=== PATIENT | female | born 1945 | race Caucasian/White ===

== ENCOUNTER 2021-04-27 11:30 | Outpatient (RCR) | payer MEDICARE, SELFPAY ==
[2021-04-25 11:06] VITALS: BP 124/65; PULSE 82
== END 2021-05-26 10:33 | disposition home or self-care (01) ==
LOC: HO.PT 11:30
PROVIDERS: PCP Family Medicine; Visit Provider Family Medicine
DX: R42 Dizziness and giddiness (principal)
CPT/HCPCS: 95992; 97112; 97161

== ENCOUNTER 2021-12-12 14:00 | Outpatient (RCR) | payer MEDICARE, SELFPAY | END 2021-12-30 14:45 | disposition home or self-care (01) | LOC: HO.PT 14:00 | PROVIDERS: PCP Family Medicine; Visit Provider Family Medicine | DX: M67.813 Other specified disorders of tendon, right shoulder (principal); M67.814 Other specified disorders of tendon, left shoulder | CPT/HCPCS: 97110; 97140; 97161 ==

== ENCOUNTER → 2022-10-23 14:58 | Outpatient (BNVA) | payer MEDICARE, SELFPAY | PROVIDERS: PCP Family Medicine; Visit Provider Anesthesiology | DX: M25.511 Pain in right shoulder (principal); M25.512 Pain in left shoulder; M19.019 Primary osteoarthritis, unspecified shoulder; M54.9 Dorsalgia, unspecified | CPT/HCPCS: 99202 ==

== ENCOUNTER 2023-05-17 17:17 | Emergency (ER) | payer MEDICARE, SELFPAY ==
--- NOTE | ~2023-05-17 | XR_ITS ---
EXAMINATION: XR KNEE, LEFT CLINICAL INFORMATION: Fall with knee pain COMPARISON: None available. TECHNIQUE: Four views of the left knee. FINDINGS: There is marked prepatellar soft tissue swelling. No fracture or joint effusion. Alignment is anatomic. Joint spaces are maintained. No abnormal soft tissue calcification. XR/XR knee LT 4V IMPRESSION: Prepatellar soft tissue swelling without fracture.
--- NOTE | ~2023-05-17 | CT_ITS ---
EXAMINATION: CT HEAD WITHOUT CONTRAST CLINICAL INFORMATION: Trauma fall, pain COMPARISON: None available. TECHNIQUE: Contiguous axial imaging was performed from the skull base to vertex without intravenous administration of contrast. This CT examination was performed using dose optimization techniques as appropriate, variously including the following: *Automated exposure control *Adjustment of mA and/or kV according to patient size (this includes techniques or standardized protocols for targeted exams where dose is matched to indication/reason for exam; i.e. extremities or head) *Use of iterative reconstruction technique DLP: 639.19 mGy-cm FINDINGS: No acute intracranial hemorrhage or infarct. The sosa-white matter differentiation is preserved. No midline shift or hydrocephalus. No acute extra-axial fluid collections. Large hematoma involving the right frontal scalp and superior periorbital soft tissues. Ill-defined lucency involving the superior orbital rim on the right (series 6, image 80 of 95). No other acute fracture identified. Sequela bilateral lens replacement. Otherwise, no orbital pathology. Mild mucosal thickening of the visualized paranasal sinuses. The mastoid air cells are clear. Atherosclerotic calcifications of the bilateral carotid siphons. CT/CT head/brain wo IV con IMPRESSION: -Large right frontal scalp and superior periorbital soft tissue hematoma. Ill-defined lucency concerning for acute nondisplaced fracture of the right superior orbital rim. -No acute intracranial abnormality.
[2023-05-17 18:38] VITALS: BP 155/82; PULSE 79; RESP 20; TEMP 36.9; O2SAT 98; BMI 30.7
--- NOTE | 2023-05-17 18:44 | ED.GENADULT ---
HPI - General Adult General Chief complaint: Fall Stated complaint: Head Injury/Fall Time Seen by Provider: 05/17/23 21:29 Source: patient Mode of arrival: ambulatory Limitations: no limitations History of Present Illness HPI narrative: Patient apparently was walking on the grass tripped and fell hitting her forehead to the ground comes here with swelling and abrasion of the right side of the forehead and left knee able to ambulate no loss of conscious not on any blood thinners no other injuries Related Data Home Medications Medication Instructions Recorded Confirmed atorvastatin 40 mg tablet 40 mg PO DAILY 10/23/22 cholecalciferol (vitamin D3) 50 50 mcg PO DAILY 10/23/22 mcg (2,000 unit) capsule (D3-2000) diclofenac sodium 1 % topical gel 1 ea topical QID 10/23/22 diltiazem HCl 360 mg 360 mg PO DAILY 10/23/22 capsule,extended release 24 hr gabapentin 600 mg tablet 600 mg PO TID 10/23/22 lisinopril 40 mg tablet 40 mg PO DAILY 10/23/22 metformin 500 mg tablet,extended 1,000 mg PO BID 10/23/22 release 24 hr omeprazole 20 mg capsule,delayed 40 mg PO DAILY 10/23/22 release primidone 50 mg tablet 100 mg PO BID 10/23/22 sertraline 100 mg tablet 100 mg PO DAILY 10/23/22 Allergies Allergy/AdvReac Type Severity Reaction Status Date / Time Penicillins [PENICILLINS] Allergy Unknown Hives Verified 05/17/23 22:43 Anesthetics - Kristan Type- Allergy Hives Verified 05/17/23 22:43 Parabens Review of Systems Review of Systems: Yes all other systems are reviewed and are negative [facility] Social History Social History Alcohol intake: current Alcohol intake frequency: holidays/special occasions only Smoked in Last 30 Days: No Use of substances other than those prescribed or required for medical reasons: No Advance Directives: No Advance Directives Information Provided: No Physical Exam ED Vital Signs: Vital Signs - 24 hr 05/17/23 18:38 05/17/23 22:31 Temperature 98.5 F Pulse Rate 79 68 Respiratory Rate 20 16 Blood Pressure 155/82 H 142/79 H Pulse Oximetry 98 100 Oxygen Delivery Method Room Air Room Air BMI result Body Mass Index 30.7 Appearance: Alert. Oriented X3. No acute distress. Eyes: PERRLA, No Nystagmus HEENT: Pharynx normal. Oral Mucosa moist hematoma right frontal no orbital tenderness Neck: Normal inspection. Neck supple. CVS: Normal heart rate and rhythm. Pulses normal. Respiratory: No respiratory distress. Equal air entry bilateral, no wheezing/rales/rhonchi Abdomen: Soft and nontender. Bowel sounds are present, no mass palpable, no CVA tenderness Skin: Skin warm and dry. Normal skin color. Normal skin turgor. Extremities: No lower extremity edema. No calf tenderness left prepatellar swelling with abrasion Neuro: Oriented X 3. No motor deficit. No sensory deficit.No cerebellar signs , cranial nerves II-XII intact Course Course Course Narrative: This is a rapid medical exam: Additional HPI, ROS, PE not included below will be deferred to primary provider. Patient is a 77-year-old female presenting to the ED with complaint of head injury. 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 She denies loss of consciousness, fall was witnessed by friend. Denies any vision changes, nausea, or vomiting. Denies neck or back pain. She is not anticoagulated. Significant hematoma to right forehead. Plan: CT head Medications Administered Discontinued Medications Generic Name Dose Route Start Last Admin Trade Name Uriahq PRN Reason Stop Dose Admin Acetaminophen 650 mg 05/17/23 22:41 05/17/23 22:46 Acetaminophen 325 Mg Tablet PO 05/17/23 22:42 650 mg ONCE ONE Administration Bacitracin 1 appl 05/17/23 22:42 05/17/23 22:47 Bacitracin Oint 0.9 Gm Packet TOPICAL 05/17/23 22:43 1 appl ONCE ONE Administration Protocol Medical Decision Making Medical Decision Making MDM Narrative: Chin after a minor fall CT scan negative for acute x-ray negative for fracture discharge patient home patient ambulatory in the ER wade wrap was applied to the left knee Differential Diagnosis Differential Diagnoses: The differential diagnosis associated with the presentation includes Subdural hematoma/cranial fracture/SAH/ICH/knee fracture Independent Interpretation I performed an independent interpretation of an: Plain X-Ray and CT Scan Radiology Impression Discussion of test interpretation with radiology: I have reviewed the radiologist's reading. Discharge Plan Discharge Clinical Impression: Contusion of left knee, Minor head injury Patient Disposition: Home, Self-Care Instructions: Head Injury (ED), Contusion in Adults (ED) Additional Instructions: Local care of the abrasions as advised Tylenol for pain Prescriptions: No Action lisinopril 40 mg tablet 40 mg PO DAILY sertraline 100 mg tablet 100 mg PO DAILY gabapentin 600 mg tablet 600 mg PO TID atorvastatin 40 mg tablet 40 mg PO DAILY diltiazem HCl 360 mg capsule,extended release 24hr 360 mg PO DAILY metformin 500 mg tablet extended release 24 hr 1,000 mg PO BID primidone 50 mg tablet 100 mg PO BID omeprazole 20 mg capsule,delayed release(DR/EC) 40 mg PO DAILY diclofenac sodium 1 % gel 1 ea topical QID cholecalciferol (vitamin D3) [D3-2000] 50 mcg (2,000 unit) capsule 50 mcg PO DAILY Interventions: ED Discharge Assessment Last Done: 05/18/23 00:13 Discharge Date/Time: 05/18/23 00:16
[2023-05-17 22:31] VITALS: BP 142/79; PULSE 68; RESP 16; O2SAT 100
[2023-05-17] MEDS: Acetaminophen 325 MG TABLET 650 MG PO (22:46)
[2023-05-17] MEDS: Bacitracin Oint 0.9 GM PACKET 1 APPL TOPICAL (22:47)
== END 2023-05-18 00:16 | disposition home or self-care (01) ==
PROVIDERS: Emergency Provider Internal Medicine; PCP Family Medicine
DX: S80.02XA Contusion of left knee, initial encounter (principal); S09.90XA Unspecified injury of head, initial encounter; R51.9 Headache, unspecified; W01.0XXA Fall on same level from slipping, tripping and stumbling without subsequent striking against object, initial encounter; Y93.9 Activity, unspecified; Y92.9 Unspecified place or not applicable; Y99.9 Unspecified external cause status; Z79.899 Other long term (current) drug therapy
CPT/HCPCS: 70450; 73564; 99284

== ENCOUNTER 2023-08-28 11:24 | Outpatient (AMB) | payer MEDICARE, SELFPAY ==
--- NOTE | 2023-08-28 11:26 | A.OFFVIS_ITS ---
Intake Vital Signs 08/28/23 11:35 Height 5 ft 2 in Weight 161 lb 8 oz BMI 29.5 BP 187/83 H Blood Pressure Location Lt brachial Position Sitting Pulse 76 Intake Visit Reasons: Gallstones Intake Note: Patient is seen in office for evaluation and treatment of gallstones. Pt c/o: onset few months, admits to loss of appetite, sweat/cold, nausea and vomit morning, bm are inconsistent diarrhea/constipation denies any abdominal pain US:07/02/23 Neurourologist Required: No Accompanied by: Self / Same As Patient Allergies benzocaine Allergy (Mild, Verified 08/28/23 11:33) Hives tetracaine Allergy (Mild, Verified 08/28/23 11:33) Hives Penicillins [PENICILLINS] Allergy (Unknown, Verified 08/28/23 11:33) Hives Anesthetics - Kristan Type- Parabens Allergy (Verified 08/28/23 11:33) Hives Medication List - Last Reconciled 08/28/23 by Chun Summers MD atorvastatin 40 mg PO DAILY cholecalciferol (vitamin D3) (D3-2000) 50 mcg PO DAILY diltiazem HCl 360 mg PO DAILY lisinopril 40 mg PO DAILY metformin ER 1,000 mg PO BID omeprazole 40 mg PO DAILY primidone 100 mg PO BID sertraline 100 mg PO DAILY HPI HPI Comments History of Present Illness Details 77-year-old female patient presenting fo r evaluation of gallstones noted on recent ultrasound of the abdomen. She reports a several month history of complaints of nausea and vomiting as well as significant amount of weight loss. She denies a history of abdominal pain at any point but mainly was concerned about the vomiting. She reports that the vomiting has improved over the past 2 weeks and she is able to eat a diet. She is uncertain if any particular foods cause more symptoms. Workup with an ultrasound of the abdomen revealed a thin-walled gallbladder multiple tiny shadowing gallstones and sludge. The patient was not focally tender during the examination over the gallbladder. Symptoms also include alternating diarrhea and constipation. She denies any gross bloody stool but did have some dark stool for a prolonged period of time. Her last colonoscopy was approximately 9 years ago. [facility] Surgical History History of carpal tunnel surgery of left wrist (~2006) History of left breast biopsy (~1970) Hx of cataract surgery (~2014) Family History Paternal Grandmother Colon cancer Breast cancer Social History Alcohol intake: current Alcohol intake frequency: holidays/special occasions only Review of Systems Const All systems reviewed & are unremarkable except as noted in HPI and below Physical Exam Vital Signs: Last Vital Signs Pulse 76 08/28/23 11:35 BP 187/83 H 08/28/23 11:35 BMI result Body Mass Index 29.5 Const General: cooperative and no acute distress Nutritional Appearance: well nourished Orientation/consciousness: patient oriented x3 Limitations: no limitations HEENT Head: Yes normocephalic and Yes atraumatic Ears: hearing grossly normal bilaterally Resp Effort & Inspection: normal respiratory effort, no audible wheezes, no cough and no respiratory distress Cardio Jugular venous distension: no JVD GI Other: Soft and nontender, negative Guerrero sign, palpable ventral hernia easily reducible with light pressure, no rebound, no rigidity. Inspection: Yes normal to inspection Skin Other: Warm, dry, no rash Neuro General: patient oriented x3 Extrem General: Yes no clubbing, cyanosis or edema Assessment & Plan Assessment & Plan (1) Cholelithiasis: Code(s): K80.20 - Calculus of gallbladder without cholecystitis without obstruction Qualifiers: Cholelithiasis location: gallbladder Cholecystitis presence: without cholecystitis (2) Nausea & vomiting: Code(s): R11.2 - Nausea with vomiting, unspecified Qualifiers: Vomiting type: unspecified Qualified Code(s): R11.2 - Nausea with vomiting, unspecified Plan 77-year-old female patient presenting with a recent history of nausea, vomiting, and weight loss but no apparent abdominal pain found to have multiple small gallstones and sludge. She denies a history of abdominal pain or fatty food intolerance. Examination reveals no apparent tenderness in the right upper quadrant and a negative Guerrero sign. I therefore recommended further evaluation with a HIDA scan to evaluate gallbladder function. If this is normal, no surgical intervention is recommended. I also suggested she consider repeat colonoscopy given her alternating constipation and diarrhea. She expressed understanding and agrees with the plan. Orders: Orders NM hepatobiliary w pharm Today K80.20 - Calculus of gallbladder without cholecystitis without obstruction, R11.2 - Nausea with vomiting, unspecified Coding Level of Care Code New Pt Level 4 (98492) Diagnoses Cholelithiasis K80.20 Cholelithiasis location: gallbladder Cholecystitis presence: without cholecystitis Nausea and vomiting, unspecified vomiting type R11.2 Vomiting type: unspecified
[2023-08-28 11:35] VITALS: BP 187/83; PULSE 76; BMI 29.5
== END 2023-08-28 11:59 | disposition home or self-care (01) ==
PROVIDERS: PCP Family Medicine; Referring Provider Family Medicine; Visit Provider Surgery
DX: K80.20 Calculus of gallbladder without cholecystitis without obstruction (principal); R11.2 Nausea with vomiting, unspecified
CPT/HCPCS: 99204; 99214

== ENCOUNTER → 2023-08-28 11:24 | Outpatient (BNVA) | payer MEDICARE, SELFPAY | PROVIDERS: PCP Family Medicine; Referring Provider Family Medicine; Visit Provider Surgery | DX: K80.20 Calculus of gallbladder without cholecystitis without obstruction (principal); R11.2 Nausea with vomiting, unspecified | CPT/HCPCS: 99202 ==

== ENCOUNTER → 2023-09-24 09:56 | Outpatient (REF) | payer MEDICARE, SELFPAY ==
--- NOTE | ~2023-09-24 | NM_ITS ---
EXAMINATION: BILIARY TRACT IMAGING STUDY WITH CCK CLINICAL INFORMATION: A 77-year-old female with persistent nausea vomiting and weight loss. Found to have a gallstone.. COMPARISON: None available at the moment for comparison.. TECHNIQUE: Serial gamma scintillation camera images were obtained over the abdomen for a total observation period of 60 minutes following the intravenous administration of 5 mCi Tc-99m mebrofenin. FINDINGS: There is good concentration of activity in the liver by 5 minutes post injection. Biliary activity is visualized by 10 minutes. The gallbladder is well visualized by 40 minutes. Small bowel is well visualized by 50 minutes. At 60 minutes post radiopharmaceutical injection, a 30-minute infusion of 1.5 micrograms Sincalide was then begun and an additional 40 minutes of images were obtained. There is poor emptying of the gallbladder. By the end of the study there is good clearance of activity from the liver and visualization of diffuse small bowel activity. The calculated gallbladder ejection fraction is 0% (Normal range of gallbladder ejection fraction is between 35-80%; GBEF <35% is considered biliary hypokinesia and >80% is considered biliary hyperkinesia; Ref. #1-Clinical Journal of Gastroenterology (2020) 14:1308?1317; Ref.#2-[email or web address]://[email or web address]-onzwgmo-[email or web address]-Gastroent yywbyc-[email or web address]). NM/NM hepatobiliary w pharm IMPRESSION: Visualization of the gallbladder is evidence of a patent cystic duct and strong evidence against the diagnosis of acute cholecystitis. The common bile duct is patent. Gallbladder emptying and ejection fraction are abnormal. Liver function appears normal.
== END ==
LOC: HO.NUCMED 09:56
PROVIDERS: PCP Family Medicine; Visit Provider Surgery
DX: K80.20 Calculus of gallbladder without cholecystitis without obstruction (principal); R11.2 Nausea with vomiting, unspecified
CPT/HCPCS: 78227; A9537; J2805

== ENCOUNTER 2023-10-11 10:45 | Outpatient (AMB) | payer MEDICARE, SELFPAY ==
--- NOTE | 2023-10-11 10:48 | MHC.OFFVIS ---
Vital Signs 10/11/23 10:53 Height 5 ft 2 in Weight 158 lb BMI 28.9 BP 134/62 Blood Pressure Location Lt brachial Position Sitting Pulse 65 Intake Visit Reasons: HIDA scan results Intake Note: Patient is seen in office for HIDA scan results, following cholelithiasis. Pt c/o:denies any concerns, here for results Account Development Specialist Required: No Accompanied by: Self / Same As Patient Allergies benzocaine Allergy (Mild, Verified 10/11/23 10:54) Hives tetracaine Allergy (Mild, Verified 10/11/23 10:54) Hives Penicillins [PENICILLINS] Allergy (Unknown, Verified 10/11/23 10:54) Hives Anesthetics - Kristan Type- Parabens Allergy (Verified 10/11/23 10:54) Hives Medication List - Last Reconciled 10/11/23 by Chun Summers MD atorvastatin 40 mg PO DAILY cholecalciferol (vitamin D3) (D3-2000) 50 mcg PO DAILY diltiazem HCl CD 360 mg PO DAILY lisinopril 40 mg PO DAILY metformin ER 1,000 mg PO BID omeprazole 40 mg PO DAILY primidone 100 mg PO BID sertraline 100 mg PO DAILY HPI Comments Details: Patient returns to review the results of her HIDA scan. Since her last visit she reports feeling much improved with no further nausea. HIDA scan was reviewed in detail which shows normal filling of the gallbladder but abnormal gallbladder emptying suggestive of chronic cholecystitis. [facility] Surgical History History of carpal tunnel surgery of left wrist (~2006) History of left breast biopsy (~1970) Hx of cataract surgery (~2014) Family History Paternal Grandmother Colon cancer Breast cancer Social History Alcohol intake: current Alcohol intake frequency: holidays/special occasions only Physical Exam Vital Signs: Last Vital Signs Pulse 65 10/11/23 10:53 BP 134/62 10/11/23 10:53 BMI result Body Mass Index 28.9 Const General: cooperative and no acute distress Nutritional Appearance: well nourished Orientation/consciousness: patient oriented x3 Limitations: no limitations HEENT Head: Yes normocephalic and Yes atraumatic Ears: hearing grossly normal bilaterally Resp Effort & Inspection: normal respiratory effort, no audible wheezes, no cough and no respiratory distress Cardio Jugular venous distension: no JVD GI Other: Exam deferred Inspection: Yes normal to inspection Skin Other: Warm, dry, no rash Neuro General: patient oriented x3 Extrem General: Yes no clubbing, cyanosis or edema Assessment & Plan Assessment & Plan (1) Nausea & vomiting: Code(s): R11.2 - Nausea with vomiting, unspecified Category: Medical Qualifiers: Vomiting type: unspecified Qualified Code(s): R11.2 - Nausea with vomiting, unspecified (2) Cholelithiasis: Code(s): K80.20 - Calculus of gallbladder without cholecystitis without obstruction Category: Medical Qualifiers: Cholelithiasis location: gallbladder Cholecystitis presence: without cholecystitis Plan Overall the patient is much improved with no further nausea since her last visit. HIDA scan does show evidence of biliary dyskinesia which would be an indication for cholecystectomy if the symptoms continue. As she is feeling improved at this time I recommended observation. She is welcome to call should the symptoms return. Coding Level of Care Code Est Pt Level 3 (77457) Diagnoses Nausea and vomiting, unspecified vomiting type R11.2 Vomiting type: unspecified Cholelithiasis K80.20 Cholelithiasis location: gallbladder Cholecystitis presence: without cholecystitis
[2023-10-11 10:53] VITALS: BP 134/62; PULSE 65; BMI 28.9
== END 2023-10-11 11:04 | disposition home or self-care (01) ==
PROVIDERS: PCP Family Medicine; Visit Provider Surgery
DX: K80.20 Calculus of gallbladder without cholecystitis without obstruction (principal)
CPT/HCPCS: 99213

== ENCOUNTER → 2023-10-11 10:45 | Outpatient (BNVA) | payer MEDICARE, SELFPAY | PROVIDERS: PCP Family Medicine; Visit Provider Surgery | DX: K80.20 Calculus of gallbladder without cholecystitis without obstruction (principal); R11.2 Nausea with vomiting, unspecified | CPT/HCPCS: 99212 ==

== ENCOUNTER 2024-01-08 12:00 | Outpatient (RCR) | payer MEDICARE, SELFPAY ==
[2023-10-09 14:04] VITALS: BP 136/65; PULSE 60
== END 2024-01-08 16:48 | disposition home or self-care (01) ==
LOC: HO.PT 12:00
PROVIDERS: PCP Family Medicine; Visit Provider Physician Assistant
DX: M54.2 Cervicalgia (principal); R26.89 Other abnormalities of gait and mobility
CPT/HCPCS: 97110; 97112; 97162

== ENCOUNTER 2024-02-21 13:29 | Outpatient (REF) | payer MEDICARE, SELFPAY ==
--- NOTE | ~2024-02-21 | CT_ITS ---
EXAMINATION: CT CHEST, ABDOMEN AND PELVIS WITH CONTRAST CLINICAL INFORMATION: Weight loss. COMPARISON: No pertinent prior studies are available for comparison. TECHNIQUE: Multidetector volumetric imaging was performed from the thoracic inlet through the pubic symphysis following administration of 85 mL Omnipaque 350 intravenous contrast. Sagittal and coronal reformatted images were obtained on the technologist workstation. This CT examination was performed using dose optimization techniques as appropriate, variously including the following: *Automated exposure control. *Adjustment of mA and/or kV according to patient size (this includes techniques or standardized protocols for targeted exams where dose is matched to indication/reason for exam, i.e., extremities or head). *Use of iterative reconstruction technique. DLP: 487.5 mGy-cm. FINDINGS: CHEST: LUNGS: The lungs are clear, with no evidence of inflammation or noncalcified nodules. There are a few bilateral benign, calcified granulomas. There are foci of minor scar/subsegmental atelectasis within the right upper and middle lobes and the lingula, without associated focal airway obstruction. There is no generalized small airway thickening. The central airways appear patent. MEDIASTINUM: Several thyroid nodules are seen, the largest within the left lobe measuring 1.4 cm (3:5). Central vascular structures are unremarkable. There is no thoracic aortic aneurysm or dissection. No mediastinal or bilateral hilar lymphadenopathy is seen. CORONARY ARTERY ATHEROSCLEROSIS: Minimal. PERICARDIUM/PLEURA: There is no significant effusion. No pleural mass or thickening. CHEST WALL/AXILLA: Unremarkable. ABDOMEN/PELVIS: LIVER, GALLBLADDER, BILIARY TREE: The liver is normal in size, shape, and attenuation. No focal hepatic lesion or biliary ductal dilatation is present. There are multiple gallstones, without gallbladder wall thickening or pericholecystic inflammatory changes. PANCREAS: Unremarkable. SPLEEN: Unremarkable. ADRENAL GLANDS: Unremarkable. KIDNEYS AND URETERS: The kidneys are normal in size, shape, and attenuation. No hydronephrosis or hydroureter or calculi seen. No perinephric stranding. BLADDER: Unremarkable. GASTROINTESTINAL TRACT: There is mild diverticulosis, without acute diverticulitis. No bowel obstruction, free intraperitoneal air or abscess is seen. There is no focal bowel wall thickening. The vermiform appendix is not identified with certainty; however, there is no finding to suggest appendicitis. ABDOMINAL WALL: No significant hernia is demonstrated. LYMPH NODES: Normal. VASCULAR: There is mild aortoiliac atherosclerotic calcification. No abdominal aortic aneurysm or dissection is seen PELVIC VISCERA: The uterus and adnexa are unremarkable. OSSEOUS STRUCTURES: There is multi-level thoracolumbar degenerative disc disease and endplate and facet arthropathy. Degenerative disc disease is most pronounced at T12-L1 through L2-3 and at L4-5, with vacuum disc phenomenon. At L4-5, there is a 4 mm anterolisthesis. No acute or aggressive osseous finding is noted. CT/CT abdomen pelvis w IV con IMPRESSION: 1. No pulmonary noncalcified nodule, mass, infiltrate or groundglass opacity is seen. 2. There is no thoracic lymphadenopathy or pleural effusion. 3. A 1.4 cm left thyroid lobe nodule is seen, which can be more fully evaluated with dedicated thyroid ultrasound, if clinically indicated. 4. There is cholelithiasis. 5. There is mild diverticulosis, without acute diverticulitis. 6. There is no abdominopelvic mass, free fluid or lymphadenopathy. 7. There are multi-level degenerative changes of the thoracolumbar spine. No aggressive osseous lesion is seen. Electronically signed by: Chun Senior MD 03/17/2024 10:28 PM EDT
[2024-02-21] MEDS: iohexoL 350 MG/ML 100 ML INFUS..BTL 85 ML IV (16:33)
[2024-02-22 09:48] LABS: Creatinine POC 0.9 mg/dL (0.5-1.4); GFR POC > 60
== END 2024-02-21 13:30 | disposition home or self-care (01) ==
LOC: HO.CT 13:29
PROVIDERS: PCP Family Medicine; Visit Provider Physician Assistant Medical
DX: R61 Generalized hyperhidrosis (principal)
CPT/HCPCS: 71260; 74177; 82565; Q9967

== ENCOUNTER 2024-03-11 11:00 | Outpatient (RCR) | payer MEDICARE, SELFPAY | END 2024-04-07 08:44 | disposition home or self-care (01) | LOC: HO.PT 11:00 | PROVIDERS: PCP Family Medicine; Visit Provider Family Medicine | DX: M25.511 Pain in right shoulder (principal); M25.512 Pain in left shoulder | CPT/HCPCS: 97110; 97140; 97162 ==

== ENCOUNTER 2024-03-28 09:51 | Outpatient (REF) | payer MEDICARE, SELFPAY ==
--- NOTE | ~2024-03-28 | MM_ITS ---
EXAMINATION: BONE DENSITOMETRY CLINICAL INDICATION: Osteopenia. COMPARISON: This is the patient's baseline examination. TECHNIQUE: Using a [employer] DXA System (software version: 13.1) manufactured by [employer], dual-energy x-ray absorptiometry was performed of the lumbar spine and left hip. The images are of good technical quality. Summary results are attached. FINDINGS: LEFT FEMUR, NECK: BMD 0.966 g/cm2, Z-score 1.5, T-score -0.5, normal. LEFT FEMUR, TOTAL: BMD 1.059 g/cm2, Z-score 2.3, T-score 0.4, normal. AP SPINE L1-L4 (excluding L2): The data of L1-L4 has been changed to exclude the L2 vertebral body, because at this level may cause overestimation of lumbar spine density. BMD 1.299 g/cm2, Z-score 2.8, T-score 1.1, normal. IDENTIFIED RISK FACTORS: Menopause, osteoporosis, recurrent falls. HISTORY OF FRACTURE: None listed. MEDICATIONS: None listed. MM/XR DEXA axial skeleton IMPRESSION: 1. DIAGNOSIS: Normal bone density based on the lowest T-score value of -0.5 in the femoral neck applying World Health Organization criteria. 2. 10-YEAR FRACTURE RISK PREDICTION, FRAX: According to the guidelines, FRAX calculation should only be performed on patients in the osteopenia bone density category. Therefore, FRAX was not performed on this patient. 3. Treatment Recommendations: NOF guidelines recommend consideration for treatment in postmenopausal women and men age 50 and older presenting with the following: -A hip or vertebral (clinical or morphometric) fracture. -T-score less than or equal to -2.5 at the femoral neck or spine after appropriate evaluation to exclude secondary causes. -Low bone mass at the hip or spine and a 10-year fracture probability by FRAX of greater than or equal to 3% for hip fracture or greater than or equal to 20% for major osteoporotic fracture based on the [place] adapted WHO algorithm. 4. Other Recommendations: All treatment decisions require clinical judgment and consideration of individual patient factors, including patient preferences, comorbidities, previous drug use, risk factors not captured in the FRAX model (e.g. frailty, falls, vitamin D deficiency, increased bone turnover, interval significant decline in bone density) and possible under or overestimation of fracture risk by FRAX. FUTURE SCAN RECOMMENDATION: People with diagnosed cases of osteoporosis or at high risk for fracture should have regular bone mineral density tests. For patients eligible for Medicare, routine testing is allowed once every 2 years. The testing frequency can be increased to one year for patients who have rapidly progressing disease, those who are receiving or discontinuing medical therapy to restore bone mass, or have additional risk factors. Electronically signed by: Piero Hebert MD 03/31/2024 02:33 PM EDT
== END 2024-03-28 09:52 | disposition home or self-care (01) ==
LOC: HO.MAMMO 09:51
PROVIDERS: PCP Family Medicine; Visit Provider Family Medicine
DX: M85.80 Other specified disorders of bone density and structure, unspecified site (principal); Z91.81 History of falling; Z78.0 Asymptomatic menopausal state; M81.0 Age-related osteoporosis without current pathological fracture
CPT/HCPCS: 77080

== ENCOUNTER 2025-01-12 12:47 | Outpatient (AMB) | payer MEDICARE, SELFPAY ==
--- OUTSIDE RECORDS SUMMARY | 2025-01-12 12:50 | XMS_ITS | Encounter Summary ---
Author Organization [facility] Address [address] [place] [id number] Phone Care Team Providers Care Back Joiner Name Role Phone Mariel Mendes MD Primary Care Provider [phone] Mariel Mendes MD Primary Care Provider [phone] Encounter Details Date Type Department Care Team (Latest Contact Info) Description 11/07/2023 Transcribe Orders [facility] [address] [place] [address] Phong Johnson MD [address] [facility] [address] [place] [address] [email or web address] Frequent bowel movements (Primary Dx) Social History Tobacco Use Types Packs/Day Years Used Date Smoking Tobacco: Former Cigarettes Q uit: 1989 Smokeless Tobacco: Never Alcohol Use Standard Drinks/Week Comments Yes 0 (1 standard drink = 0.6 oz pur e alcohol) 1 rarely Education Answer Date Recorded Are you interested in more education? Not on rosemary e 09/29/2022 Are you concerned about learning? Not on file 09/29/2022 No 09/29/2022 No 09/29/2022 Digital Access Answer Date Recorded No 10/30/2022 No 10/30/2022 Reliable internet access at home? Not on file 10/30/2022 Device with a working camera? Not on file Comments No Sex and Gender Information Value Date Recorded Sex Assigned at Not on file Legal Sex Female 10:08 PM EDT Gender Identity Not on file Sexual Orientation Not on file documented as of this encounter Plan of Treatment Not on file documented as of this encounter Results * Calprotectin, stool (11/14/2023 11:18 AM EDT) STOOL CALPROTECTIN 86 mcg/g [facility] [facility] [place] Comment: (NOTE) Reference Range: <50 Normal 50-120 Borderline >120 Elevated Calprotectin in Crohn's disease and ulcerative colitis can be five to several thousand times above the reference population (50 mcg/g or less). Levels are usually 50 mcg/g or less in healthy patients and with irritable bowel syndrome. Repeat testing in 4-6 weeks is suggested for borderline values. Stool (Stool) 11/14/2023 11: 18 AM EDT 11/14/2023 12:09 PM EDT Phong Johnson MD BODY FLUIDS AND STOOLS ORDERABLE S Final Result [facility] [facility] [place] [address] [place] [address], [facility] [phone] documented in this encounter Visit Diagnoses Diagnosis Frequent bowel movements- Primary Other symptoms involving digestive system documented in this encounter Care Teams Back Joiner Relationship Specialty Start Date End Date Mariel Mendes MD PCP - General Family Medicine 10/15/20 11/02/24 Mariel Mendes MD [address] [place] [address] PCP - General Family Medicine 11/03/24 documented as of this encounter Additional Source Comments The information contained in this document represents components of the legal health record. It is not the complete legal health record.[facility]
--- NOTE | 2025-01-12 13:05 | HO.SPINEOV ---
Intake Visit Reasons: low back pain Intake Note: Ms. Key is here today c/o low back pain. MRI done @ [facility]. Core Winding Operator Required: No Allergies benzocaine Allergy (Mild, Verified 10/11/23 10:54) Hives tetracaine Allergy (Mild, Verified 10/11/23 10:54) Hives Penicillins (PENICILLINS) Allergy (Unknown, Verified 10/11/23 10:54) Hives Anesthetics - Kristan Type- Parabens Allergy (Verified 10/11/23 10:54) Hives Assessment & Plan Assessment & Plan (1) Back pain: Code(s): M54.9 - Dorsalgia, unspecified Category: Medical (2) Ataxic gait: Code(s): R26.0 - Ataxic gait Category: Medical Plan Dear Marta, Thank you for referring Mrs Key to our office today. She is a very nice 79-year-old female who has had on and off back issues for years but generally nothing more than just day-to-day occasional flare-ups, who in the middle of October and this year awoke with an intense severe pain on the left side of her low back, which she describes as being over the left SI joint as well as the lumbar spine. She had no provocative event. There was no specific thing that she did such as lifting that caused it. Since then though, she has had tremendous difficulty standing and walking. If she is sitting she is generally okay, if she is lying down she is fine. She has managed it with Tylenol. She can not take anti-inflammatories because of kidney disease. The pain has not gotten better whatsoever. She underwent an MRI showing diffuse degenerative changes with severe stenosis at L4-5, and edema around the left L3-4 facet joint and was referred to us for an evaluation. PMH: She has history of diabetes, but tells me her A1c is 5.3 and she is very well controlled, she has hypertension that is also well controlled. History of essential tremor, arthritis in both shoulders, knee surgery, left hand surgery, cataracts and retinal surgery. No cardiopulmonary disease to report, liver and kidneys are working fine as well she knows although she is a long-term diabetic. No history of bleeding disorders, blood clots, major abdominal surgery etc.. Social hx: She does not smoke cigarettes or drink any alcohol but she does use marijuana daily Medications: Metformin, lisinopril, diltiazem, omeprazole, sertraline, atorvastatin, propranolol, primidone, calcium and vitamin-D, oxybutynin and iron Allergies: She has an extensive list of local topical medications including benzocaine, chloroprocaine, cocaine, proparacaine, tetracaine, Novocain, articaine, bupivacaine, dibucaine, Prilosec cane, ropivacaine that all give her hives. She is okay with lidocaine. She also has an amoxicillin allergy. Physical exam: Awake alert oriented, slow to get up and stand, she has pain and tenderness over an area palpated just left to the lumbosacral junction, somewhat over the SI joint region slightly more medial. Motor examination reveals that she has some weakness of her hands bilaterally with tremor, however she also has weakness of her iliopsoas as well. I would rate both of these at about 4- out of 5. The rest of her motor muscle groups are normal. She is diffusely hyperreflexic with Riley's sign in her right hand. Interestingly no clonus. Imaging review: Lumbar MRI done at [facility] reveals grade 1 spondylolisthesis at L4-5 with severe central canal stenosis. There is also some edema over the left L3-4 facet and pedicle region. This maybe a stress reaction. Impression: 79-year-old female presents with the acute onset back pain about 3 months ago which has not improved at all despite tincture of time and some gentle medication treatment with Tylenol. Her MRI shows diffuse arthritic changes as outlined above with severe stenosis at L4-5 as well as some reactive edema around the L3-4 facet which looks stress related. Although she has multiple findings on her MRI which could be amenable to surgery, she does not have the traditional claudicating leg pain that comes with stenosis, and typically arthritic conditions that we see in the lumbar spine do not generally have abrupt onset of symptoms it is more of a slow gradually revolving condition. Therefore, I do not want to bolanos her into a surgery just yet, I would like to give her a little bit of gentle conservative treatment in the form of physical therapy and see if we can get her through this. Because of her diabetes I do not think a cortisone injections going to be a great idea. If she does not improve with the physical therapy, I will see her back in the office with Dr. Ba get a set of standing x-rays and we can evaluate to see if he thinks she would be a good candidate for lumbar fusion surgery. As a side note, she is developing problems with balance she has weakness of her hands in her iliopsoas and hyperreflexia, all of which could be signs of a cervical myelopathy. I would like to exclude this with a cervical MRI. Thank you for allowing us to care for your patient. The total time spent with this visit with this patient was 45 minutes reviewing history, physical exam, lumbar MRI imaging review, and implementation of treatment plan or further diagnostic testing Iglesia Ba MD,PhD [facility] Orders: Orders PT Evaluation and Treatment Today M54.9 - Dorsalgia, unspecified MR cervical spine wo con Today R26.0 - Ataxic gait Coding Level of Care Code New Pt Level 4 (65737) Diagnoses Back pain M54.9 Ataxic gait R26.0
== END 2025-01-12 13:55 | disposition home or self-care (01) ==
LOC: HO.HNS 12:47
PROVIDERS: PCP Family Medicine; Visit Provider Physician Assistant
DX: M54.9 Dorsalgia, unspecified (principal); R26.0 Ataxic gait
CPT/HCPCS: 99204

== ENCOUNTER → 2025-01-12 12:47 | Outpatient (BNVA) | payer MEDICARE, SELFPAY | PROVIDERS: PCP Family Medicine; Visit Provider Physician Assistant | DX: Z71.2 Person consulting for explanation of examination or test findings (principal); M54.50 Low back pain, unspecified; R26.0 Ataxic gait | CPT/HCPCS: 99202 ==

== ENCOUNTER 2025-04-21 13:49 | Outpatient (RCR) | payer MEDICARE, SELFPAY ==
--- NOTE | 2025-03-04 09:11 | MHC.PT.EP ---
[facility] [place] Office [place] Office [place] Office [address] Cristal Lazo [address] [facility] [phone] F: [phone] F: [phone] F: [phone] F: [phone] Physical Therapy Plan of Care Date of Evaluation: 03/02/25 Date of Surgery: Diagnosis: Dorsalgia, unspecified Back pain. Left-sided low back pain, facet mediated versus SI joint. Evaluate and treat. 2-3 times a week for 6-8 weeks Assessment: Pt is a pleasant and motivated 79yo F who presents to PT with low back pain and decreased balance. She denies radicular symptoms but does have decreased strength on LLE vs RLE. She presents to PT with current impairments in pain, decreased ROM, decreased strength, soft tissue restrictions, decreased balance/proprioception, and impaired gait. She is limited functionally by prolonged standing, walking, bending, and stair navigation. She is a good candidate for skilled PT in order to address current impairments to maximize function, decreased pain, and decrease risk of falls Frequency and Duration: The patient will be seen 2x/week for 5 weeks Short Term Goals: Pt will be I with HEP to promote self management of symptoms Pt will improve L hip flexion strength to at least 4/5 Pt will perform 3 sit<>stands without UE support Workforce Management Manager Goals: Pt will improve L quad and hip flexor strength to at least 4+/5 to assist with prolonged standing and walking Pt will demonstrate improvements in LE strength and endurance as evidenced by perform 5 sit<>stands without UE support Pt will tolerate prolonged standing and walking > 10 min independently with LRAD without LOB Pt will demonstrate improvements in function as evidenced by statistically significant improvement in Modified Oswestry Low Back Pain Disability Index Questionnaire Treatment Plan: Modalities to reduce pain, spasms and effusion. Manual therapy to restore motion and function. Therapeutic exercise to improve strength and flexibility. Neuromuscular re-education for posture and balance. Therapeutic activities to return to functional activities of daily living. Electronically signed by: Please sign and return to therapist. Thank you for your referral.
--- NOTE | 2025-04-21 15:59 | MHC.PT.DC ---
[facility] [place] Office [place] Office [place] Office [address] Cristal Lazo [address] [phone] F: [phone] F: [phone] F: [phone] F: [phone] Physical Therapy Discharge Report Diagnosis: Dorsalgia, unspecified Back pain. Left-sided low back pain, facet mediated versus SI joint. Evaluate and treat. 2-3 times a week for 6-8 weeks Date of Surgery: Date of Evaluation: 03/02/25 Date of Discharge: 04/21/25 Treatments to Date: 5 Cancellations to Date: No Shows to Date: Discharge Status: Improved Function Independent with HEP Discharge Summary: Pt has made improvements since SOC. She has had a decrease in low back pain. She improved her score on Modified Oswestry Low Back Pain Disability Index Questionnaire from 25/50 on initial PT evaluation to 7/50 today. She has started ambulating with RW and demonstrates improvements in safety and balance throughout gait. She is independent and compliant with HEP. She reports she feels ready to D/C to HEP. I provided pt with printed, updated copy of HEP. She is D/C to HEP at this time Electronically signed by: Nery Javed, PT, DPT Please sign and return to therapist. Thank you for your referral.
== END 2025-04-21 15:59 | disposition home or self-care (01) ==
LOC: HO.PT 13:49
PROVIDERS: PCP Family Medicine; Visit Provider Physician Assistant
DX: M54.50 Low back pain, unspecified (principal)
CPT/HCPCS: 97110; 97112; 97162